=== PATIENT | male | born 1985 | race African-American/Black ===

== ENCOUNTER 2022-03-14 20:00 | Inpatient (IN) | payer OTHER ==
[~2022-03-14] VITALS: Ht 190.5 cm; Wt 126.3 kg
[2022-03-14 21:35] LABS: HEMATOCRIT 47.4 % (42.0-52.0); HEMOGLOBIN 16.5 g/dl (13.5-17.5); MEAN CORPUSCULAR HEMOGLOBIN 30.3 pg (27.0-33.0); MEAN CORPUSCULAR HGB CONC 34.8 g/dl (32.0-36.5); MEAN CORPUSCULAR VOLUME 87.1 fl (80.0-96.0); PLATELET COUNT, AUTOMATED 253 10^3/uL (150-450); RED BLOOD COUNT 5.44 10^6/uL (4.30-6.10); WHITE BLOOD COUNT 9.3 10^3/uL (4.0-10.0)
[2022-03-14 21:47] LABS: AMPHETAMINES LEVEL URINE NEGATIVE (NEGATIVE); BARBITURATES URINE NEGATIVE (NEGATIVE); BENZODIAZEPINES URINE NEGATIVE (NEGATIVE); COCAINE METABOLITE URINE NEGATIVE (NEGATIVE)
[2022-03-14 21:48] LABS: CANNABINOIDS URINE NEGATIVE (NEGATIVE); METHADONE URINE NEGATIVE (NEGATIVE); OPIATES URINE NEGATIVE (NEGATIVE); PHENCYCLIDINE URINE NEGATIVE (NEGATIVE)
[2022-03-14 21:52] LABS: RSV AMPLIFICATION NEGATIVE (NEGATIVE)
[2022-03-14 21:54] LABS: ETHYL ALCOHOL (ETHANOL) 0.003 % (0.000-0.010)
[2022-03-14 21:55] LABS: ACETAMINOPHEN LEVEL < 2.0 UG/ML (10.0-20.0); ALBUMIN 4.6 G/DL (3.2-5.2); ALKALINE PHOSPHATASE 89 U/L (46-116); ALT/SGPT 27 U/L (7.0-40); AST/SGOT 15 U/L (<34); BILIRUBIN,DIRECT 0.1 MG/DL (<0.4); BILIRUBIN,TOTAL 0.4 MG/DL (0.3-1.2); BLOOD UREA NITROGEN 12 MG/DL (9-23); CALCIUM LEVEL 10.1 MG/DL (8.5-10.1); CARBON DIOXIDE LEVEL 27 MMOL/L (20-31); CHLORIDE LEVEL 103 MMOL/L (98-107); CREATININE FOR GFR 0.97 MG/DL (0.70-1.30); GLOMERULAR FILTRATION RATE > 60.0 (>60); GLUCOSE, FASTING 96 MG/DL (60-100); POTASSIUM SERUM 4.2 MMOL/L (3.5-5.1); SALICYLATE LEVEL < 3.0 MG/DL (<30); SODIUM LEVEL 138 MMOL/L (136-145); TOTAL PROTEIN 7.5 G/DL (5.7-8.2)
[2022-03-14 21:59] LABS: THYROID STIMULATING HORMONE 0.712 uIU/ML (0.55-4.78)
[2022-03-14] MEDS ORDERED: ACET650T61 PO (23:20)
[2022-03-14] MEDS ORDERED: HOME MED LIST COMPLETE! XX SCH (23:20)
[2022-03-14] MEDS ORDERED: ERGO500029 PO (23:20)
[2022-03-14] MEDS ORDERED: TRAZ-189 PO (23:20)
[2022-03-14] MEDS ORDERED: OMEP40CA5 PO (23:20)
[2022-03-14] MEDS ORDERED: SYNT88TA2 PO (23:20)
[2022-03-14] MEDS ORDERED: CELE40TA PO (23:20)
[2022-03-15] MEDS ORDERED: LEVOTHYROXINE 88MCG TABLET (0.088 MG) PO SCH (06:00)
[2022-03-15] MEDS ORDERED: CitaloPRAM (CeleXA) 20 MG TAB PO SCH (09:00)
[2022-03-15] MEDS ORDERED: MOM 30ML SUSPENSION UDC PO PRN (14:35)
[2022-03-15] MEDS ORDERED: ACETAMINOPHEN TAB 650MG DOSE (2X325MG) PO PRN (14:35)
[2022-03-15] MEDS ORDERED: MAALOX 30 ML SUSP *UDC PO PRN (14:35)
[2022-03-15] MEDS ORDERED: traZODone 50 MG TAB PO PRN (14:35)
[2022-03-15] MEDS ORDERED: PILL CUTTER 1 EACH XX PRN (15:20)
[2022-03-15 15:31] VITALS: BP 137/75
[2022-03-15] MEDS ORDERED: traZODone 100 MG TAB PO SCH (21:00)
[2022-03-15] MEDS ORDERED: OMEPRAZOLE 20MG CAP PO SCH (21:00)
[2022-03-15] MEDS: OMEPRAZOLE 20MG CAP PO SCH (22:09)
[2022-03-15] MEDS: traZODone 50 MG TAB PO PRN (23:06)
[2022-03-16] MEDS: LEVOTHYROXINE 88MCG TABLET (0.088 MG) PO SCH (06:02)
[2022-03-16 06:39] VITALS: BP 132/93
[2022-03-16] MEDS: CitaloPRAM (CeleXA) 20 MG TAB PO SCH (08:47)
[2022-03-16] MEDS ORDERED: CitaloPRAM (CeleXA) 20 MG TAB PO SCH (09:00)
[2022-03-16] MEDS ORDERED: PERCOCET 5MG/325MG TAB PO ONE (18:35)
[2022-03-16 19:14] VITALS: BP 127/80
[2022-03-16] MEDS ORDERED: LIDOCAINE 5% (LIDODERM) PATCH TD SCH (21:00)
[2022-03-16] MEDS: LIDOCAINE 5% (LIDODERM) PATCH TD SCH (21:00)
[2022-03-16] MEDS: OMEPRAZOLE 20MG CAP PO SCH (21:00)
[2022-03-16] MEDS: traZODone 50 MG TAB PO PRN (23:13)
[2022-03-17] MEDS: LEVOTHYROXINE 88MCG TABLET (0.088 MG) PO SCH ×3 (06:26→06:32)
[2022-03-17 06:43] VITALS: BP 116/74
[2022-03-17] MEDS: IBUPROFEN 200MG TAB PO SCH ×3 (08:00→17:16)
[2022-03-17] MEDS: CitaloPRAM (CeleXA) 20 MG TAB PO SCH (08:17)
[2022-03-17] MEDS: PERCOCET 5MG/325MG TAB PO SCH (08:20)
[2022-03-17 16:26] VITALS: BP 131/79
[2022-03-17] MEDS: OMEPRAZOLE 20MG CAP PO SCH (21:00)
[2022-03-17] MEDS: LIDOCAINE 5% (LIDODERM) PATCH TD SCH (23:29)
[2022-03-17] MEDS: traZODone 50 MG TAB PO PRN (23:32)
[2022-03-18 06:20] VITALS: BP 138/63
[2022-03-18] MEDS: LEVOTHYROXINE 88MCG TABLET (0.088 MG) PO SCH (07:11)
[2022-03-18] MEDS: CitaloPRAM (CeleXA) 20 MG TAB PO SCH (08:31)
[2022-03-18] MEDS: IBUPROFEN 200MG TAB PO SCH ×3 (08:34→18:00)
[2022-03-18] MEDS: PERCOCET 5MG/325MG TAB PO SCH (09:00)
[2022-03-18] MEDS: hydrOXYzine 50 MG TAB PO PRN (11:19)
[2022-03-18 16:27] VITALS: BP 132/67
[2022-03-18] MEDS: OMEPRAZOLE 20MG CAP PO SCH (21:00)
[2022-03-18] MEDS: PERCOCET 5MG/325MG TAB PO PRN (21:27)
[2022-03-19] MEDS: LIDOCAINE 5% (LIDODERM) PATCH TD SCH ×2 (00:04→21:04)
[2022-03-19] MEDS: traZODone 50 MG TAB PO PRN ×2 (00:04→22:58)
[2022-03-19] MEDS: LEVOTHYROXINE 88MCG TABLET (0.088 MG) PO SCH (06:08)
[2022-03-19 06:30] VITALS: BP 129/68
[2022-03-19] MEDS: IBUPROFEN 200MG TAB PO SCH ×3 (08:36→17:15)
[2022-03-19] MEDS: CitaloPRAM (CeleXA) 20 MG TAB PO SCH (08:36)
[2022-03-19] MEDS: PERCOCET 5MG/325MG TAB PO SCH (09:00)
[2022-03-19] MEDS: PERCOCET 5MG/325MG TAB PO PRN (11:32)
[2022-03-19 16:37] VITALS: BP 131/60
[2022-03-19] MEDS: OMEPRAZOLE 20MG CAP PO SCH (21:00)
[2022-03-20] MEDS: LEVOTHYROXINE 88MCG TABLET (0.088 MG) PO SCH (06:01)
[2022-03-20 06:55] VITALS: BP 95/52
[2022-03-20] MEDS: CitaloPRAM (CeleXA) 20 MG TAB PO SCH (08:55)
[2022-03-20] MEDS: IBUPROFEN 200MG TAB PO SCH ×3 (08:58→18:00)
[2022-03-20] MEDS: PERCOCET 5MG/325MG TAB PO SCH (08:58)
[2022-03-20] MEDS: hydrOXYzine 50 MG TAB PO PRN (11:06)
[2022-03-20] MEDS: PERCOCET 5MG/325MG TAB PO PRN ×2 (14:33→21:58)
[2022-03-20 19:03] VITALS: BP 138/75
[2022-03-20] MEDS ORDERED: PRAZOSIN 1 MG CAP PO SCH (21:00)
[2022-03-20] MEDS: OMEPRAZOLE 20MG CAP PO SCH (21:00)
[2022-03-20] MEDS: LIDOCAINE 5% (LIDODERM) PATCH TD SCH (21:19)
[2022-03-20] MEDS: traZODone 50 MG TAB PO PRN (23:26)
[2022-03-21] MEDS: LEVOTHYROXINE 88MCG TABLET (0.088 MG) PO SCH (05:43)
[2022-03-21 06:28] VITALS: BP 123/59
[2022-03-21] MEDS: CitaloPRAM (CeleXA) 20 MG TAB PO SCH (08:19)
[2022-03-21] MEDS: IBUPROFEN 200MG TAB PO SCH ×3 (08:20→18:10)
[2022-03-21] MEDS: PERCOCET 5MG/325MG TAB PO SCH (08:24)
[2022-03-21] MEDS: PERCOCET 5MG/325MG TAB PO PRN (14:51)
[2022-03-21] MEDS: hydrOXYzine 50 MG TAB PO PRN (18:10)
[2022-03-21 20:13] VITALS: BP 146/81
[2022-03-21] MEDS ORDERED: PRAZOSIN 1 MG CAP PO SCH (21:00)
[2022-03-21] MEDS: OMEPRAZOLE 20MG CAP PO SCH (21:00)
[2022-03-21 21:21] VITALS: BP 146/81
[2022-03-21] MEDS: LIDOCAINE 5% (LIDODERM) PATCH TD SCH (21:21)
[2022-03-21] MEDS: traZODone 50 MG TAB PO PRN (23:04)
[2022-03-22] MEDS: LEVOTHYROXINE 88MCG TABLET (0.088 MG) PO SCH (06:12)
[2022-03-22 06:18] VITALS: BP 115/57
[2022-03-22] MEDS: IBUPROFEN 200MG TAB PO SCH (08:00)
[2022-03-22] MEDS: PERCOCET 5MG/325MG TAB PO SCH (08:40)
[2022-03-22] MEDS: CitaloPRAM (CeleXA) 20 MG TAB PO SCH (09:29)
[2022-03-22] MEDS ORDERED: TRAZ-252 PO (09:57)
[2022-03-22] MEDS ORDERED: HYDR50TA70 PO (09:57)
[2022-03-22] MEDS ORDERED: LIDO5TD TD (09:57)
[2022-03-22] MEDS ORDERED: PRAZ2CAP PO (09:57)
[2022-03-22] MEDS ORDERED: CELE40TA PO (09:57)
[2022-03-22] MEDS ORDERED: SYNT88TA2 PO (09:57)
== END 2022-03-22 12:14 | disposition home or self-care (01) | DRG 885 ==
LOC: M ED 20:00 → M ED INP 03-15 14:32 → M PSY 03-15 15:31
PROVIDERS: ADMIT Student in an Organized Health Care Education/Training Program; ATTEND Psychiatry & Neurology Psychiatry
DX: F33.1 Major depressive disorder, recurrent, moderate (principal); R45.851 Suicidal ideations; Z91.82 Personal history of military deployment; F43.10 Post-traumatic stress disorder, unspecified; G47.33 Obstructive sleep apnea (adult) (pediatric); K29.70 Gastritis, unspecified, without bleeding; E05.00 Thyrotoxicosis with diffuse goiter without thyrotoxic crisis or storm; F17.220 Nicotine dependence, chewing tobacco, uncomplicated; K21.9 Gastro-esophageal reflux disease without esophagitis; I10 Essential (primary) hypertension; E55.9 Vitamin D deficiency, unspecified; M25.562 Pain in left knee; M54.9 Dorsalgia, unspecified; G89.29 Other chronic pain; E03.9 Hypothyroidism, unspecified; Z20.822 Contact with and (suspected) exposure to COVID-19; Z79.890 Hormone replacement therapy; Z79.899 Other long term (current) drug therapy; Z56.6 Other physical and mental strain related to work

== ENCOUNTER 2022-05-24 14:39 | Emergency (ER) | payer OTHER ==
[~2022-05-24] VITALS: Ht 190.5 cm; Wt 129.7 kg
[~2022-05-24 14:39] MED LIST: ACET650T61 PO; CELE40TA PO; ERGO500029 PO; HYDR50TA70 PO; LIDO5TD TD; OMEP40CA5 PO; PRAZ2CAP PO; SYNT88TA2 PO; TRAZ-189 PO; TRAZ-252 PO
[2022-05-24] MEDS ORDERED: MORPHINE 4 MG/ML 1ML VIAL IV ONE (15:20)
[2022-05-24 15:58] LABS: BASO # 0.1 10^3/uL (0.0-0.2); BASO % 0.8 % (0.0-1.0); EOS # 0.1 10^3/uL (0.0-0.5); EOS % 0.6 % (0.0-3.0); HEMOGLOBIN 15.4 g/dl (13.5-17.5); LYMPH # 2.1 10^3/uL (1.5-5.0); LYMPH % 25.1 % (24.0-44.0); MEAN CORPUSCULAR HEMOGLOBIN 29.7 pg (27.0-33.0); MEAN CORPUSCULAR VOLUME 84.9 fl (80.0-96.0); MONO # 0.7 10^3/uL (0.0-0.8); MONO % 8.6 % (2.0-8.0); NEUTROPHILS # 5.4 10^3/uL (1.5-8.5); NEUTROPHILS % 64.5 % (36.0-66.0); PLATELET COUNT, AUTOMATED 202 10^3/uL (150-450); RED BLOOD COUNT 5.18 10^6/uL (4.30-6.10); WHITE BLOOD COUNT 8.4 10^3/uL (4.0-10.0)
[2022-05-24 16:06] LABS: INR 0.92; PROTHROMBIN TIME 12.6 SECONDS (12.5-14.5)
[2022-05-24 16:07] LABS: PARTIAL THROMBOPLASTIN TIME 28.1 SECONDS (24.8-34.2)
[2022-05-24 16:32] LABS: CPK CREATINE PHOSPHOKINASE 135 U/L (46-171)
[2022-05-24 17:09] LABS: ALBUMIN 4.2 G/DL (3.2-5.2); ALKALINE PHOSPHATASE 81 U/L (46-116); ALT/SGPT 25 U/L (7.0-40); AST/SGOT 19 U/L (<34); BILIRUBIN,DIRECT 0.2 MG/DL (<0.4); BILIRUBIN,TOTAL 0.7 MG/DL (0.3-1.2); BLOOD UREA NITROGEN 15 MG/DL (9-23); CALCIUM LEVEL 9.7 MG/DL (8.5-10.1); CARBON DIOXIDE LEVEL 31 MMOL/L (20-31); CHLORIDE LEVEL 101 MMOL/L (98-107); CK-MB VALUE MASS < 1.0 NG/ML (<3.6); CREATININE FOR GFR 1.06 MG/DL (0.70-1.30); FREE T4 1.08 NG/DL (0.89-1.76); GLOMERULAR FILTRATION RATE > 60.0 (>60); GLUCOSE, FASTING 92 MG/DL (60-100); MB/CK RELATIVE INDEX 0.74 (< OR =4); SODIUM LEVEL 136 MMOL/L (136-145)
[2022-05-24 17:22] LABS: CK-MB VALUE MASS < 1.0 NG/ML (<3.6)
[2022-05-24 17:23] LABS: CPK CREATINE PHOSPHOKINASE 140 U/L (46-171); MB/CK RELATIVE INDEX 0.71 (< OR =4)
[2022-05-24] MEDS ORDERED: OXYCODONE/APAP 5MG/325MG(HOME DOSE PACK) PO ONE (19:35)
[2022-05-24 20:06] VITALS: BP 136/84
== END 2022-05-24 20:32 | disposition home or self-care (01) ==
LOC: M ED 14:39
DX: R55 Syncope and collapse (principal); G89.29 Other chronic pain; M54.50 Low back pain, unspecified; I10 Essential (primary) hypertension; E05.00 Thyrotoxicosis with diffuse goiter without thyrotoxic crisis or storm; Z87.19 Personal history of other diseases of the digestive system; F41.9 Anxiety disorder, unspecified; F32.9 Major depressive disorder, single episode, unspecified; F43.10 Post-traumatic stress disorder, unspecified; Z79.890 Hormone replacement therapy; Z79.899 Other long term (current) drug therapy
CPT/HCPCS: 70450; 71045; 72125; 72128; 72131; 80048; 80076; 82550; 82553; 84439; 84443; 84484; 85025; 85610; 85730; 93005; 93041; 94760; 96374; 99285; J2270

== ENCOUNTER 2022-05-31 11:31 | Inpatient (IN) | payer OTHER ==
[~2022-05-31] VITALS: Ht 190.5 cm; Wt 129.6 kg
[2022-05-31] MEDS ORDERED: IBUP-1114 PO (11:45)
[2022-05-31] MEDS ORDERED: KETOROLAC 30 MG/ML 1ML VIAL IV ONE (12:35)
[2022-05-31] MEDS ORDERED: LIDOCAINE 5% (LIDODERM) PATCH TD ONE (12:35)
[2022-05-31] MEDS ORDERED: diphenhydrAMINE 50MG/ML VIAL IV ONE (12:35)
[2022-05-31] MEDS ORDERED: METOCLOPRAMIDE INJ 10MG/2ML VIAL IV ONE (12:35)
[2022-05-31] MEDS ORDERED: ACETAMINOPHEN 500 MG TAB PO ONE (12:35)
[2022-05-31 12:39] LABS: HEMATOCRIT 47.3 % (42.0-52.0); MEAN CORPUSCULAR HEMOGLOBIN 29.6 pg (27.0-33.0); MEAN CORPUSCULAR HGB CONC 33.8 g/dl (32.0-36.5); MEAN CORPUSCULAR VOLUME 87.4 fl (80.0-96.0); PLATELET COUNT, AUTOMATED 206 10^3/uL (150-450); RED BLOOD COUNT 5.41 10^6/uL (4.30-6.10); WHITE BLOOD COUNT 7.6 10^3/uL (4.0-10.0)
[2022-05-31 13:07] LABS: AMPHETAMINES LEVEL URINE NEGATIVE (NEGATIVE); BARBITURATES URINE NEGATIVE (NEGATIVE); BENZODIAZEPINES URINE NEGATIVE (NEGATIVE); CANNABINOIDS URINE NEGATIVE (NEGATIVE); COCAINE METABOLITE URINE NEGATIVE (NEGATIVE); METHADONE URINE NEGATIVE (NEGATIVE); OPIATES URINE NEGATIVE (NEGATIVE); PHENCYCLIDINE URINE NEGATIVE (NEGATIVE)
[2022-05-31 13:09] LABS: ETHYL ALCOHOL (ETHANOL) 0.004 % (0.000-0.010)
[2022-05-31 13:11] LABS: ACETAMINOPHEN LEVEL < 2.0 UG/ML (10.0-20.0); SALICYLATE LEVEL < 3.0 MG/DL (<30)
[2022-05-31 13:20] LABS: ALBUMIN 4.3 G/DL (3.2-5.2); ALKALINE PHOSPHATASE 79 U/L (46-116); ALT/SGPT 24 U/L (7.0-40); AST/SGOT 19 U/L (<34); BILIRUBIN,DIRECT 0.2 MG/DL (<0.4); BILIRUBIN,TOTAL 0.6 MG/DL (0.3-1.2); BLOOD UREA NITROGEN 10 MG/DL (9-23); CALCIUM LEVEL 10.1 MG/DL (8.5-10.1); CARBON DIOXIDE LEVEL 28 MMOL/L (20-31); CHLORIDE LEVEL 103 MMOL/L (98-107); CREATININE FOR GFR 1.05 MG/DL (0.70-1.30); GLOMERULAR FILTRATION RATE > 60.0 (>60); GLUCOSE, FASTING 90 MG/DL (60-100); POTASSIUM SERUM 4.1 MMOL/L (3.5-5.1); SODIUM LEVEL 138 MMOL/L (136-145); THYROID STIMULATING HORMONE 5.027 uIU/ML (0.55-4.78)
[2022-05-31] MEDS ORDERED: ACETAMINOPHEN TAB 650MG DOSE (2X325MG) PO PRN (15:35)
[2022-05-31] MEDS ORDERED: MOM 30ML SUSPENSION UDC PO PRN (15:35)
[2022-05-31] MEDS ORDERED: MAALOX 30 ML SUSP *UDC PO PRN (15:35)
[2022-05-31] MEDS ORDERED: PRAZ2CAP PO (16:52)
[2022-05-31] MEDS ORDERED: FAMO1TAB11 PO (16:52)
[2022-05-31] MEDS ORDERED: HYDR50TA70 PO (16:52)
[2022-05-31] MEDS ORDERED: SYNT88TA2 PO (16:52)
[2022-05-31] MEDS ORDERED: VITA100093 PO (16:52)
[2022-05-31] MEDS ORDERED: CITA40TA7 PO (16:55)
[2022-05-31] MEDS ORDERED: HOME MED LIST COMPLETE! XX SCH (17:00)
[2022-05-31 17:20] VITALS: BP 130/74
[2022-05-31] MEDS ORDERED: ACETAMINOPHEN TAB 650MG DOSE (2X325MG) PO SCH (18:10)
[2022-05-31] MEDS ORDERED: ONDANSETRON 4MG ORAL DISINTEGRATING TAB PO ONE (18:20)
[2022-05-31 18:23] LABS: TOTAL PROTEIN 7.3 G/DL (5.7-8.2)
[2022-05-31] MEDS: PRAZOSIN 1 MG CAP PO SCH (20:02)
[2022-05-31] MEDS: PANTOPRAZOLE 40MG TAB (PROTONIX) PO SCH (20:02)
[2022-05-31] MEDS: predniSONE 20 MG TAB PO SCH (20:02)
[2022-05-31] MEDS: ACETAMINOPHEN TAB 650MG DOSE (2X325MG) PO SCH (20:04)
[2022-05-31] MEDS: traZODone 50 MG TAB PO PRN (21:39)
[2022-05-31] MEDS: GABAPENTIN 100 MG CAP PO SCH (21:39)
[2022-05-31] MEDS: DICLOFENAC EPOLAMINE 1.3% PATCH TOP SCH (21:39)
[2022-05-31] MEDS: IBUPROFEN 800 MG TAB PO SCH (21:40)
[2022-06-01] MEDS: PILL CUTTER 1 EACH XX PRN (06:04)
[2022-06-01] MEDS: IBUPROFEN 800 MG TAB PO SCH ×3 (06:05→21:14)
[2022-06-01] MEDS: GABAPENTIN 100 MG CAP PO SCH ×3 (06:05→21:11)
[2022-06-01] MEDS: LEVOTHYROXINE 88MCG TABLET (0.088 MG) PO SCH (06:05)
[2022-06-01] MEDS: ACETAMINOPHEN TAB 650MG DOSE (2X325MG) PO SCH ×5 (06:06→23:34)
[2022-06-01 06:28] VITALS: BP 114/56
[2022-06-01] MEDS: CitaloPRAM (CeleXA) 20 MG TAB PO SCH (09:46)
[2022-06-01] MEDS: predniSONE 20 MG TAB PO SCH (09:46)
[2022-06-01] MEDS: LIDOCAINE 5% (LIDODERM) PATCH TD SCH ×2 (09:47→09:53)
[2022-06-01] MEDS: DICLOFENAC EPOLAMINE 1.3% PATCH TOP SCH ×2 (09:49→21:11)
[2022-06-01 18:01] VITALS: BP 151/87
[2022-06-01] MEDS: traZODone 50 MG TAB PO PRN (21:11)
[2022-06-01] MEDS: PANTOPRAZOLE 40MG TAB (PROTONIX) PO SCH (21:11)
[2022-06-01] MEDS: PRAZOSIN 1 MG CAP PO SCH (21:12)
[2022-06-02] MEDS: GABAPENTIN 100 MG CAP PO SCH (05:59)
[2022-06-02] MEDS: ACETAMINOPHEN TAB 650MG DOSE (2X325MG) PO SCH ×3 (06:00→18:29)
[2022-06-02] MEDS: LEVOTHYROXINE 88MCG TABLET (0.088 MG) PO SCH (06:00)
[2022-06-02] MEDS: IBUPROFEN 800 MG TAB PO SCH ×3 (06:00→22:50)
[2022-06-02] MEDS: PILL CUTTER 1 EACH XX PRN (06:00)
[2022-06-02 06:34] VITALS: BP 123/60
[2022-06-02] MEDS: CitaloPRAM (CeleXA) 20 MG TAB PO SCH (09:25)
[2022-06-02] MEDS: predniSONE 10MG TAB PO SCH (09:27)
[2022-06-02] MEDS: DICLOFENAC EPOLAMINE 1.3% PATCH TOP SCH ×2 (09:29→23:14)
[2022-06-02] MEDS: LIDOCAINE 5% (LIDODERM) PATCH TD SCH (09:29)
[2022-06-02] MEDS ORDERED: SUMAtriptan SUCCINATE 25 MG TAB PO PRN (12:25)
[2022-06-02] MEDS: GABAPENTIN 300 MG CAP PO SCH ×2 (14:44→22:48)
[2022-06-02 18:34] VITALS: BP 141/67
[2022-06-02] MEDS: PRAZOSIN 1 MG CAP PO SCH (22:48)
[2022-06-02] MEDS: PANTOPRAZOLE 40MG TAB (PROTONIX) PO SCH (22:48)
[2022-06-03] MEDS: ACETAMINOPHEN TAB 650MG DOSE (2X325MG) PO SCH ×4 (00:12→17:29)
[2022-06-03] MEDS: LEVOTHYROXINE 88MCG TABLET (0.088 MG) PO SCH (05:37)
[2022-06-03 05:50] VITALS: BP 118/63
[2022-06-03] MEDS: IBUPROFEN 800 MG TAB PO SCH ×3 (06:27→21:47)
[2022-06-03] MEDS: GABAPENTIN 300 MG CAP PO SCH ×3 (06:27→21:47)
[2022-06-03] MEDS: CitaloPRAM (CeleXA) 20 MG TAB PO SCH (08:21)
[2022-06-03] MEDS: predniSONE 10MG TAB PO SCH (08:21)
[2022-06-03] MEDS: LIDOCAINE 5% (LIDODERM) PATCH TD SCH ×2 (08:23→21:40)
[2022-06-03] MEDS: DICLOFENAC EPOLAMINE 1.3% PATCH TOP SCH ×2 (08:25→21:44)
[2022-06-03 18:29] VITALS: BP 144/77
[2022-06-03] MEDS: PRAZOSIN 1 MG CAP PO SCH (21:46)
[2022-06-03] MEDS: PANTOPRAZOLE 40MG TAB (PROTONIX) PO SCH (21:48)
[2022-06-03] MEDS: traZODone 50 MG TAB PO PRN (22:54)
[2022-06-04] MEDS: LEVOTHYROXINE 88MCG TABLET (0.088 MG) PO SCH (05:56)
[2022-06-04] MEDS: GABAPENTIN 300 MG CAP PO SCH ×3 (06:26→23:05)
[2022-06-04] MEDS: IBUPROFEN 800 MG TAB PO SCH ×3 (06:30→23:05)
[2022-06-04] MEDS: ACETAMINOPHEN TAB 650MG DOSE (2X325MG) PO SCH ×4 (06:31→18:25)
[2022-06-04 06:57] VITALS: BP 126/75
[2022-06-04] MEDS: CitaloPRAM (CeleXA) 20 MG TAB PO SCH (09:36)
[2022-06-04] MEDS: predniSONE 10MG TAB PO SCH (09:36)
[2022-06-04] MEDS: DICLOFENAC EPOLAMINE 1.3% PATCH TOP SCH ×2 (09:38→21:37)
[2022-06-04] MEDS: hydrOXYzine 50 MG TAB PO PRN ×2 (10:47→23:07)
[2022-06-04] MEDS ORDERED: traZODone 50 MG TAB PO PRN (11:30)
[2022-06-04 18:19] VITALS: BP 148/70
[2022-06-04] MEDS: PANTOPRAZOLE 40MG TAB (PROTONIX) PO SCH (21:37)
[2022-06-04] MEDS: PRAZOSIN 1 MG CAP PO SCH (21:38)
[2022-06-04] MEDS: traZODone 100 MG TAB PO PRN (23:05)
[2022-06-05] MEDS: PILL CUTTER 1 EACH XX PRN (06:18)
[2022-06-05] MEDS: ACETAMINOPHEN TAB 650MG DOSE (2X325MG) PO SCH ×5 (06:19→23:56)
[2022-06-05] MEDS: LEVOTHYROXINE 88MCG TABLET (0.088 MG) PO SCH (06:19)
[2022-06-05] MEDS: GABAPENTIN 300 MG CAP PO SCH ×3 (06:19→22:20)
[2022-06-05] MEDS: IBUPROFEN 800 MG TAB PO SCH ×3 (06:20→22:20)
[2022-06-05 06:27] VITALS: BP 132/77
[2022-06-05] MEDS: predniSONE 10MG TAB PO SCH (08:15)
[2022-06-05] MEDS: CitaloPRAM (CeleXA) 20 MG TAB PO SCH (08:15)
[2022-06-05] MEDS: DICLOFENAC EPOLAMINE 1.3% PATCH TOP SCH ×2 (08:16→20:42)
[2022-06-05] MEDS: LIDOCAINE 5% (LIDODERM) PATCH TD SCH (08:16)
[2022-06-05] MEDS: hydrOXYzine 50 MG TAB PO PRN ×2 (10:50→22:53)
[2022-06-05] MEDS ORDERED: LORazepam 1 MG TAB PO STA (12:15)
[2022-06-05] MEDS: busPIRone 5 MG TAB PO SCH ×2 (12:29→20:42)
[2022-06-05 16:42] VITALS: BP 141/81
[2022-06-05] MEDS: PANTOPRAZOLE 40MG TAB (PROTONIX) PO SCH (20:42)
[2022-06-05] MEDS: PRAZOSIN 1 MG CAP PO SCH (20:43)
[2022-06-05] MEDS: traZODone 100 MG TAB PO PRN (22:20)
[2022-06-06] MEDS: GABAPENTIN 300 MG CAP PO SCH ×3 (06:21→22:11)
[2022-06-06] MEDS: LEVOTHYROXINE 88MCG TABLET (0.088 MG) PO SCH (06:21)
[2022-06-06] MEDS: ACETAMINOPHEN TAB 650MG DOSE (2X325MG) PO SCH ×3 (06:23→18:13)
[2022-06-06] MEDS: IBUPROFEN 800 MG TAB PO SCH ×3 (06:27→22:11)
[2022-06-06 06:52] VITALS: BP 135/74
[2022-06-06] MEDS: predniSONE 10MG TAB PO SCH (09:12)
[2022-06-06] MEDS: CitaloPRAM (CeleXA) 20 MG TAB PO SCH (09:12)
[2022-06-06] MEDS: LIDOCAINE 5% (LIDODERM) PATCH TD SCH (09:12)
[2022-06-06] MEDS: busPIRone 5 MG TAB PO SCH ×2 (09:12→22:11)
[2022-06-06] MEDS: DICLOFENAC EPOLAMINE 1.3% PATCH TOP SCH ×2 (09:14→22:11)
[2022-06-06] MEDS: hydrOXYzine 50 MG TAB PO PRN ×2 (11:19→22:12)
[2022-06-06 16:24] VITALS: BP 135/65
[2022-06-06 22:10] VITALS: BP 149/75
[2022-06-06] MEDS: PRAZOSIN 1 MG CAP PO SCH (22:10)
[2022-06-06] MEDS: PANTOPRAZOLE 40MG TAB (PROTONIX) PO SCH (22:11)
[2022-06-06] MEDS: traZODone 100 MG TAB PO PRN (22:12)
[2022-06-07] MEDS: LEVOTHYROXINE 88MCG TABLET (0.088 MG) PO SCH (06:03)
[2022-06-07] MEDS: GABAPENTIN 300 MG CAP PO SCH (06:04)
[2022-06-07] MEDS: IBUPROFEN 800 MG TAB PO SCH (06:08)
[2022-06-07] MEDS: ACETAMINOPHEN TAB 650MG DOSE (2X325MG) PO SCH ×3 (06:09→11:12)
[2022-06-07 06:43] VITALS: BP 112/69
[2022-06-07] MEDS ORDERED: PRAZ2CAP PO (07:59)
[2022-06-07] MEDS ORDERED: CITA40TA7 PO (07:59)
[2022-06-07] MEDS ORDERED: TRAZ-189 PO (07:59)
[2022-06-07] MEDS ORDERED: BUSP5TA PO (07:59)
[2022-06-07] MEDS ORDERED: DICL1PAT6 TOP (07:59)
[2022-06-07] MEDS ORDERED: SUMA100T2 PO (08:00)
[2022-06-07] MEDS ORDERED: GABA-282 PO (08:00)
[2022-06-07] MEDS ORDERED: LIDO5TD TD (08:00)
[2022-06-07] MEDS: predniSONE 10MG TAB PO SCH (08:17)
[2022-06-07] MEDS: DICLOFENAC EPOLAMINE 1.3% PATCH TOP SCH (08:17)
[2022-06-07] MEDS: busPIRone 5 MG TAB PO SCH (08:17)
[2022-06-07] MEDS: CitaloPRAM (CeleXA) 20 MG TAB PO SCH (08:17)
[2022-06-07] MEDS: LIDOCAINE 5% (LIDODERM) PATCH TD SCH (08:18)
[2022-06-07] MEDS: hydrOXYzine 50 MG TAB PO PRN (11:12)
[2022-06-07] MEDS ORDERED: PRED10TA2 PO (12:13)
== END 2022-06-07 11:39 | disposition home or self-care (01) | DRG 885 ==
LOC: M ED 11:31 → M ED INP 15:34 → M PSY 16:59
PROVIDERS: ADMIT Psychiatry & Neurology Psychiatry; ATTEND Psychiatry & Neurology Psychiatry
DX: F33.1 Major depressive disorder, recurrent, moderate (principal); R45.851 Suicidal ideations; F43.10 Post-traumatic stress disorder, unspecified; E05.00 Thyrotoxicosis with diffuse goiter without thyrotoxic crisis or storm; K21.9 Gastro-esophageal reflux disease without esophagitis; G47.33 Obstructive sleep apnea (adult) (pediatric); G47.00 Insomnia, unspecified; G43.909 Migraine, unspecified, not intractable, without status migrainosus; M25.562 Pain in left knee; M48.07 Spinal stenosis, lumbosacral region; M54.16 Radiculopathy, lumbar region; G89.29 Other chronic pain; E66.9 Obesity, unspecified; F17.220 Nicotine dependence, chewing tobacco, uncomplicated; I10 Essential (primary) hypertension; E55.9 Vitamin D deficiency, unspecified; F41.8 Other specified anxiety disorders; Z20.822 Contact with and (suspected) exposure to COVID-19; Z79.890 Hormone replacement therapy; Z56.4 Discord with boss and workmates; Z79.899 Other long term (current) drug therapy

== ENCOUNTER → 2022-08-17 | Outpatient (CLI) | payer OTHER ==
[~2022-08-17] MED LIST changes: +BUSP5TA PO; +CITA40TA7 PO; +DICL1PAT6 TOP; +FAMO1TAB11 PO; +GABA-282 PO; +IBUP-1114 PO; +PRED10TA2 PO; +SUMA100T2 PO; +VITA100093 PO
== END ==
LOC: M PLARAD 14:05
PROVIDERS: ATTEND Psychiatry & Neurology Neurology
DX: R42 Dizziness and giddiness (principal); H53.8 Other visual disturbances; G43.109 Migraine with aura, not intractable, without status migrainosus; S06.0X0S Concussion without loss of consciousness, sequela

== ENCOUNTER → 2023-02-21 | Outpatient (CLI) | payer OTHER | LOC: M EKG 11:04 | DX: R06.02 Shortness of breath (principal); R07.9 Chest pain, unspecified; M25.531 Pain in right wrist; M25.561 Pain in right knee ==

== ENCOUNTER → 2023-02-21 | Outpatient (CLI) | payer OTHER | LOC: M PLAIMG 10:16 | DX: R07.9 Chest pain, unspecified (principal); R06.02 Shortness of breath; M25.531 Pain in right wrist; M25.561 Pain in right knee ==

== ENCOUNTER 2023-05-16 16:48 | Emergency (ER) | payer OTHER ==
[~2023-05-16] VITALS: Ht 190.5 cm; Wt 148.0 kg
[2023-05-16] MEDS ORDERED: AMOX500C PO (21:19)
[2023-05-16] MEDS ORDERED: IBUP-1022 PO (21:19)
[2023-05-16] MEDS: AMOXICILLIN 500 MG CAP PO ONE (21:48)
[2023-05-16] MEDS: KETOROLAC 60MG 2ML VIAL IM ONE (21:49)
[2023-05-16 21:57] VITALS: BP 138/96; TEMP 97.9; O2SAT 100
== END 2023-05-16 21:58 | disposition home or self-care (01) ==
LOC: M ED 16:48
DX: K04.7 Periapical abscess without sinus (principal); I10 Essential (primary) hypertension; K21.9 Gastro-esophageal reflux disease without esophagitis; E03.9 Hypothyroidism, unspecified; E05.00 Thyrotoxicosis with diffuse goiter without thyrotoxic crisis or storm; Z79.2 Long term (current) use of antibiotics; Z79.891 Long term (current) use of opiate analgesic; Z79.52 Long term (current) use of systemic steroids; Z79.899 Other long term (current) drug therapy
CPT/HCPCS: 96372; 99283; J1885

== ENCOUNTER 2023-07-13 19:48 | Emergency (ER) | payer OTHER ==
[~2023-07-13] VITALS: Ht 190.5 cm; Wt 146.2 kg
[~2023-07-13 19:48] MED LIST changes: +AMOX500C PO; +IBUP-1022 PO
[2023-07-13 21:01] LABS: BASO # 0.1 10^3/uL (0.0-0.2); EOS # 0.1 10^3/uL (0.0-0.5); EOS % 1.2 % (0.0-3.0); HEMATOCRIT 44.5 % (42.0-52.0); HEMOGLOBIN 15.1 g/dl (13.5-17.5); LYMPH # 1.7 10^3/uL (1.5-5.0); LYMPH % 24.7 % (24.0-44.0); MEAN CORPUSCULAR HEMOGLOBIN 29.2 pg (27.0-33.0); MEAN CORPUSCULAR HGB CONC 33.9 g/dl (32.0-36.5); MEAN CORPUSCULAR VOLUME 86.1 fl (80.0-96.0); MONO # 0.8 10^3/uL (0.0-0.8); MONO % 10.8 % (2.0-8.0); NEUTROPHILS # 4.3 10^3/uL (1.5-8.5); NEUTROPHILS % 61.6 % (36.0-66.0); PLATELET COUNT, AUTOMATED 232 10^3/uL (150-450); RED BLOOD COUNT 5.17 10^6/uL (4.30-6.10); WHITE BLOOD COUNT 6.9 10^3/uL (4.0-10.0)
[2023-07-13 21:22] LABS: LIPASE 36 U/L (12-53)
[2023-07-13 21:25] LABS: ALBUMIN 4.3 G/DL (3.2-5.2); ALKALINE PHOSPHATASE 180 U/L (46-116); ALT/SGPT 808 U/L (7.0-40); AST/SGOT 335 U/L (<34); BILIRUBIN,DIRECT 3.8 MG/DL (<0.4); BILIRUBIN,TOTAL 5.1 MG/DL (0.3-1.2); BLOOD UREA NITROGEN 9 MG/DL (9-23); CALCIUM LEVEL 9.4 MG/DL (8.5-10.1); CARBON DIOXIDE LEVEL 30 MMOL/L (20-31); CHLORIDE LEVEL 101 MMOL/L (98-107); CREATININE FOR GFR 1.12 MG/DL (0.70-1.30); GLOMERULAR FILTRATION RATE > 60.0 (>60); GLUCOSE, FASTING 98 MG/DL (60-100); POTASSIUM SERUM 4.1 MMOL/L (3.5-5.1); SODIUM LEVEL 138 MMOL/L (136-145); TOTAL PROTEIN 7.2 G/DL (5.7-8.2)
[2023-07-13] MEDS: NS IV ONE (22:40)
[2023-07-13] MEDS: ONDANSETRON 4MG 2ML VIAL IV ONE (22:41)
[2023-07-13] MEDS: KETOROLAC 30 MG/ML 1ML VIAL IV ONE (22:41)
[2023-07-13 23:06] LABS: HEPATITIS B CORE ANTIBODY IGM NEGATIVE (NEGATIVE)
[2023-07-13 23:07] LABS: HEPATITIS C VIRUS ABY INDEX < 0.02 INDEX (<0.8)
[2023-07-13] MEDS ORDERED: ISOVUE-370 76% 100ML VIAL As Ordered ONE (23:36)
[2023-07-14] MEDS ORDERED: DICL100G10 TOP (01:09)
[2023-07-14] MEDS ORDERED: FAMO10TA50 PO (01:09)
[2023-07-14] MEDS ORDERED: RIME75TA PO (01:09)
[2023-07-14] MEDS ORDERED: GABA-282 PO (01:09)
[2023-07-14] MEDS ORDERED: LIDO5DIS41 TD (01:09)
[2023-07-14] MEDS ORDERED: BUSP5TA PO (01:09)
[2023-07-14] MEDS ORDERED: TRAZ-257 PO (01:09)
[2023-07-14] MEDS ORDERED: SILD100T PO (01:09)
[2023-07-14] MEDS ORDERED: HOME MED LIST COMPLETE! XX SCH (01:10)
[2023-07-14 01:12] LABS: INR 1.07; PARTIAL THROMBOPLASTIN TIME 26.9 SECONDS (24.8-34.2); PROTHROMBIN TIME 13.6 SECONDS (12.5-14.5)
[2023-07-14] MEDS: NS 1,000 ML IV ONE (02:00)
[2023-07-14 07:41] LABS: BASO # 0.1 10^3/uL (0.0-0.2); BASO % 1.4 % (0.0-1.0); EOS # 0.1 10^3/uL (0.0-0.5); EOS % 1.4 % (0.0-3.0); HEMATOCRIT 41.8 % (42.0-52.0); HEMOGLOBIN 14.2 g/dl (13.5-17.5); LYMPH # 1.4 10^3/uL (1.5-5.0); LYMPH % 23.8 % (24.0-44.0); MEAN CORPUSCULAR HEMOGLOBIN 29.5 pg (27.0-33.0); MEAN CORPUSCULAR VOLUME 86.9 fl (80.0-96.0); MONO # 0.7 10^3/uL (0.0-0.8); MONO % 11.4 % (2.0-8.0); NEUTROPHILS # 3.6 10^3/uL (1.5-8.5); NEUTROPHILS % 61.3 % (36.0-66.0); PLATELET COUNT, AUTOMATED 184 10^3/uL (150-450); RED BLOOD COUNT 4.81 10^6/uL (4.30-6.10); WHITE BLOOD COUNT 5.8 10^3/uL (4.0-10.0)
[2023-07-14 07:48] LABS: INR 0.96; PROTHROMBIN TIME 12.5 SECONDS (12.5-14.5)
[2023-07-14 08:15] LABS: ALBUMIN 3.6 G/DL (3.2-5.2); BILIRUBIN,DIRECT 2.2 MG/DL (<0.4); TOTAL PROTEIN 6.5 G/DL (5.7-8.2)
[2023-07-14] MEDS ORDERED: LIDOCAINE 5% (LIDODERM) PATCH TD PRN (09:25)
[2023-07-14] MEDS ORDERED: GABAPENTIN 300 MG CAP PO PRN (09:25)
[2023-07-14] MEDS ORDERED: ACETAMINOPHEN 650MG ER TAB (TYLENOL ARTHRITIS) PO PRN (09:25)
[2023-07-14] MEDS: busPIRone 5 MG TAB PO SCH (12:34)
[2023-07-14] MEDS: CitaloPRAM (CeleXA) 20 MG TAB PO SCH (12:34)
[2023-07-14] MEDS: VITAMIN D 1,000 INTERNATIONAL UNITS TABLET PO SCH (12:34)
[2023-07-14] MEDS: PANTOPRAZOLE 40MG TAB (PROTONIX) PO SCH (12:34)
[2023-07-14 13:00] VITALS: BP 119/63
[2023-07-14 13:15] VITALS: O2SAT 96
[2023-07-14 13:24] VITALS: TEMP 97.2
[2023-07-14] MEDS ORDERED: PRAZOSIN 1 MG CAP PO SCH (21:00)
[2023-07-14] MEDS ORDERED: traZODone 100 MG TAB PO SCH (21:00)
[2023-07-15] MEDS ORDERED: LEVOTHYROXINE 88MCG TABLET (0.088 MG) PO SCH (09:00)
== END 2023-07-14 13:33 | disposition home or self-care (01) ==
LOC: M ED 19:48
DX: K80.80 Other cholelithiasis without obstruction (principal); E80.6 Other disorders of bilirubin metabolism; K21.9 Gastro-esophageal reflux disease without esophagitis; F43.10 Post-traumatic stress disorder, unspecified; F32.A Depression, unspecified; F41.9 Anxiety disorder, unspecified; E03.9 Hypothyroidism, unspecified; E66.9 Obesity, unspecified; Z79.899 Other long term (current) drug therapy
CPT/HCPCS: 74177; 74181; 76705; 80048; 80074; 80076; 81001; 83605; 83690; 85025; 85610; 85730; 87486; 87581; 87633; 87798; 96374; 96375; 99284; J1885; J2405; Q9967